=== PATIENT | female | born 1950 | race Asian ===

== ENCOUNTER 2017-11-12 13:15 | Emergency (ER) | payer OTHER ==
[~2017-11-12] VITALS: Ht 152.4 cm; Wt 56.7 kg
[2017-11-12 13:48] VITALS: BP 154/94
--- NOTE | 2017-11-12 14:56 | NUR ---
RN [facility]EDS[facility]
== END 2017-11-12 15:19 | disposition home or self-care (01) ==
LOC: ER 13:16
DX: R05 Cough (principal); R06.2 Wheezing
CPT/HCPCS: 71010; 99283; A4606; Z7610